=== PATIENT | male | born 1935 | race Caucasian/White ===

== ENCOUNTER 2024-03-05 15:24 | Emergency (ER) | payer OTHER, MEDICARE ==
[~2024-03-05] VITALS: Ht 175.3 cm; Wt 84.1 kg
[2024-03-05 16:01] VITALS: TEMP 97.8
[2024-03-05] MEDS ORDERED: iohexol 350MG/ML 100ml bottle IV ONE (19:44)
[2024-03-05 20:30] LABS: BASOPHILS # (AUTO) 0.1 X10'3 (0-0.2); BASOPHILS % (AUTO) 1.3 % (0-1); EOSINOPHILS # (AUTO) 0.5 X10'3 (0-0.9); EOSINOPHILS % (AUTO) 7.1 % (0-6); HEMATOCRIT 28.4 % (42.0-52.0); HEMOGLOBIN 9.6 g/dl (14.0-17.9); LYMPHOCYTES # (AUTO) 1.4 X10'3 (1.1-4.8); LYMPHOCYTES % (AUTO) 19.9 % (21-51); MEAN CORPUSCULAR HEMOGLOBIN 31.5 PG (27.0-31.0); MEAN CORPUSCULAR HGB CONC 33.7 g/dL (33.0-36.5); MEAN CORPUSCULAR VOLUME 93.5 FL (78-98); MONOCYTES # (AUTO) 0.7 X10'3 (0-0.9); MONOCYTES % (AUTO) 9.9 % (2-12); NEUTROPHILS # (AUTO) 4.4 X10'3 (1.8-7.7); NEUTROPHILS % (AUTO) 61.8 % (42-75); PLATELET COUNT 144 X10'3 (140-440); RED BLOOD COUNT 3.03 X10'6 (4.70-6.10); RED CELL DISTRIBUTION WIDTH 14.7 % (11.5-14.5); WHITE BLOOD COUNT 7.1 X10'3 (4.5-11.0)
[2024-03-05 20:38] LABS: D-DIMER 0.68 MG/L FEU (0-0.50); PROTHROMBIN TIME 10.9 SECONDS (9.0-12.0)
[2024-03-05 20:42] LABS: ALANINE AMINOTRANSFERASE 21 U/L (12-78); ALBUMIN 3.7 G/DL (3.4-5.0); ALBUMIN/GLOBULIN RATIO 1.5 (1.1-1.5); ALKALINE PHOSPHATASE 96 IU/L (46-116); ANION GAP 9 (8-16); ASPARTATE AMINO TRANSFERASE 23 U/L (10-37); BILIRUBIN,TOTAL 0.9 MG/DL (0.1-1.0); BLOOD UREA NITROGEN 45 MG/DL (7-18); BUN/CREATININE RATIO 21.6 (10.0-20.0); CALCIUM 8.8 MG/DL (8.5-10.1); CHLORIDE 110 MMOL/L (99-107); CREATININE 2.08 MG/DL (0.60-1.10); GLUCOSE 99 MG/DL (70-104); SODIUM 139 MMOL/L (135-145); TOTAL CARBON DIOXIDE 20.5 MMOL/L (24-32); TOTAL PROTEIN 6.2 G/DL (6.4-8.2); eCRCL 25 ML/MIN; eGFR 30 ML/MIN
[2024-03-05 20:49] LABS: PRO BRAIN NATRIURETIC PEPTIDE 672 PG/ML (0-450)
[2024-03-05 21:15] VITALS: BP 107/53; PULSE 49; RESP 16; O2SAT 96
== END 2024-03-05 21:17 | disposition home or self-care (01) ==
LOC: ER 15:24
DX: R60.0 Localized edema (principal); R47.01 Aphasia; I63.9 Cerebral infarction, unspecified
CPT/HCPCS: 36415; 71045; 80053; 83880; 84484; 85025; 85379; 85610; 93005; 93971; 99285; Q9967